=== PATIENT | female | born 1975 | race African-American/Black ===

== ENCOUNTER 2020-12-17 16:47 | Inpatient (IN) | payer MEDICARE, OTHER ==
[~2020-12-17] VITALS: Ht 160 cm; Wt 73.6 kg
[~2020-12-17 16:47] MED LIST: BENA40TA9 PO; METF-415 PO
[2020-12-17] MEDS ORDERED: MORPHINE SULFATE 4 MG/ML CPJ (NOT FOR IM USE) IV STA (17:07)
[2020-12-17] MEDS ORDERED: FUROSEMIDE 40MG/4ML VIAL IV ONE (17:15)
[2020-12-17 17:35] LABS: BASOPHILS % 1.2 % (0.0-2.0); EOSINOPHILS % 2.6 % (0.0-5.0); HEMATOCRIT. 37.9 % (36.0-48.0); HEMOGLOBIN. 11.6 g/dL (12.0-16.0); LYMPHOCYTES % 24.6 % (20.0-50.0); MEAN CORPUSCULAR HEMOGLOBIN 24.2 pg (28.0-32.0); MEAN CORPUSCULAR VOLUME 79.2 fL (81.0-99.0); MEAN PLATELET VOLUME 9.1 fl (7.4-10.4); MONOCYTES % 4.4 % (2.0-8.0); NEUTROPHILS % 67.2 % (40.0-76.0); PLATELET 243 x1000/uL (130-400); RED BLOOD CELL COUNT 4.79 mill/uL (4.2-5.4); RED CELL DISTRIBUTION WIDTH 16.4 % (11.6-14.6)
[2020-12-17 17:40] LABS: CHLORIDE 94 mEq/L (98-107)
[2020-12-17 17:41] LABS: INR 1.1; PROTHROMBIN TIME 11.4 sec (9.6-11.0)
[2020-12-17] MEDS ORDERED: VANCOMYCIN 1 G PREMIX 200 ML IV SCH (17:45)
[2020-12-17] MEDS ORDERED: PIPERACILLIN/TAZOBACTAM 3.375GM/50ML PREMIX IV ONE (17:45)
[2020-12-17 17:47] LABS: BETA HYDROXYBUTYRATE 0.1 mMol/L (0.0-0.3)
[2020-12-17 17:48] LABS: ETHANOL BLOOD < 10 mg/dL
[2020-12-17] MEDS: NITROGLYCERIN 0.4MG TABLET SL SL PRN ×2 (17:57→19:21)
[2020-12-17] MEDS ORDERED: PIPERACILLIN/TAZ 3.375G PREMIX 50 ML IV NR (18:00)
[2020-12-17 19:15] LABS: BG BASE EXCESS 0.7 mmol/L (-2.0-2.0); BG CARBOXYHEMOGLOBIN 0.8 % (0.5-1.5); BG DEOXYHEMOGLOBIN 1.1 % (0.0-5.0); BG FRACTION INSPIRED OXYGEN 65; BG HCO3 ACT 26.2 mmol/L (22.0-26.0); BG METHEMOGLOBIN 0.2 % (0.0-1.5); BG OXYGEN SATURATION 98.9 % (92.0-98.5); BG OXYHEMOGLOBIN 97.9 % (94.0-97.0); BG PCO2 45.9 mmHg (35.0-45.0); BG PH 7.375 (7.350-7.450); BG PO2 146.8 mmHg (75.0-100.0); BG SAMPLE SITE RIGHT RADIAL; BG TOTAL HEMOGLOBIN 11.3 g/dL (12.0-18.0); BG TOTAL RESPIRATORY RATE 22 b/min; BG VENT MODE MASK - BIPAP
[2020-12-17] MEDS ORDERED: DOCUSATE SODIUM 100MG CAPSULE PO PRN (23:00)
[2020-12-17] MEDS ORDERED: ONDANSETRON HCL 4MG/2ML INJ IV PRN (23:00)
[2020-12-17] MEDS ORDERED: MAGNESIUM/ALUMINUM HYDROXIDE/SIMETHICONE 30ML UDC PO PRN (23:00)
[2020-12-17] MEDS ORDERED: ACETAMINOPHEN 325MG TABLET PO PRN (23:00)
[2020-12-17] MEDS ORDERED: IPRATROPIUM/ALBUTEROL 0.5-3(2.5)MG/3ML NEB NEB PRN (23:00)
[2020-12-17] MEDS ORDERED: DEXTROSE 50% WATER 50ML SYRINGE IV PRN ×2 (23:15→23:30)
[2020-12-18] VITALS (52 sets, daily range): BP systolic 93–202; BP diastolic 54–143
[2020-12-18] MEDS: CLONIDINE 0.1MG TABLET PO PRN ×2 (00:24→08:34)
[2020-12-18] MEDS: HYDROCODONE/ACETAMINOPHEN 5/325MG TABLET PO PRN ×2 (00:25→21:08)
[2020-12-18] MEDS: INSULIN LISPRO 100 UNITS/ML SUBCUT SCH ×7 (00:27→17:00)
[2020-12-18 05:37] LABS: CHLORIDE 101 mEq/L (98-107)
[2020-12-18 05:38] LABS: BASOPHILS % 1.3 % (0.0-2.0); EOSINOPHILS % 3.9 % (0.0-5.0); HEMATOCRIT. 32.5 % (36.0-48.0); HEMOGLOBIN. 9.9 g/dL (12.0-16.0); LYMPHOCYTES % 31.8 % (20.0-50.0); MEAN CORPUSCULAR HEMOGLOBIN 23.5 pg (28.0-32.0); MEAN CORPUSCULAR VOLUME 77.1 fL (81.0-99.0); MEAN PLATELET VOLUME 8.8 fl (7.4-10.4); MONOCYTES % 5.7 % (2.0-8.0); NEUTROPHILS % 57.3 % (40.0-76.0); PLATELET 213 x1000/uL (130-400); RED BLOOD CELL COUNT 4.22 mill/uL (4.2-5.4); RED CELL DISTRIBUTION WIDTH 16.5 % (11.6-14.6)
[2020-12-18 05:48] LABS: LDL CHOLESTEROL 80 mg/dL (5-100)
[2020-12-18 05:49] LABS: CREATINE KINASE 69 IU/L (26-192)
[2020-12-18 05:50] LABS: HDL CHOLESTEROL 48 mg/dL (40-59)
[2020-12-18 05:53] LABS: CREATINE KINASE MB FRACTION 3.3 ng/mL (0.5-3.6)
[2020-12-18] MEDS: HEPARIN 5000 UNITS/ML VIAL SUBCUT SCH ×3 (05:56→22:36)
[2020-12-18] MEDS: BLOOD SUGAR DIAGNOSTIC STRIP TEST SCH ×4 (06:08→20:54)
[2020-12-18] MEDS: HYDRALAZINE 20MG/ML VIAL IV PRN ×2 (06:15→19:24)
[2020-12-18] MEDS: MORPHINE SULFATE 2 MG/ML CPJ (NOT FOR IM USE) IV PRN ×2 (07:58→12:22)
[2020-12-18] MEDS ORDERED: LABETALOL 5MG/ML SYR 20 MG/4 ML SYRINGE IV NR (10:00)
[2020-12-18] MEDS ORDERED: LOSARTAN POTASSIUM 100 MG TABLET PO SCH (10:30)
[2020-12-18] MEDS ORDERED: IPRATROPIUM/ALBUTEROL 0.5-3(2.5)MG/3ML NEB HHN PRN (10:30)
[2020-12-18] MEDS ORDERED: NIFEDIPINE XL 60MG TAB PO SCH (10:30)
[2020-12-18 12:08] LABS: HEMATOCRIT 34.9 % (36.0-48.0); HEMOGLOBIN 10.6 g/dL (12.0-16.0)
[2020-12-18] MEDS ORDERED: GABA-529 MT (12:12)
[2020-12-18] MEDS: GABAPENTIN 100MG CAPSULE PO SCH ×2 (13:28→20:55)
[2020-12-18] MEDS: IPRATROPIUM/ALBUTEROL 0.5-3(2.5)MG/3ML NEB HHN SCH ×2 (14:22→19:58)
[2020-12-18 17:03] LABS: CREATINE KINASE MB FRACTION 3.9 ng/mL (0.5-3.6)
[2020-12-18] MEDS ORDERED: LABETALOL HCL 100MG TABLET PO SCH (21:00)
[2020-12-18] MEDS ORDERED: INSULIN LISPRO 100 UNITS/ML SUBCUT SCH (21:00)
[2020-12-18] MEDS ORDERED: INSULIN GLARGINE UD 100 UNITS/ML SYR SUBCUT SCH ×2 (22:00→23:30)
[2020-12-19] VITALS (16 sets, daily range): BP systolic 103–151; BP diastolic 56–91
[2020-12-19] MEDS: IPRATROPIUM/ALBUTEROL 0.5-3(2.5)MG/3ML NEB HHN SCH ×4 (01:50→20:11)
[2020-12-19 04:45] LABS: BASOPHILS % 1.7 % (0.0-2.0); EOSINOPHILS % 6.5 % (0.0-5.0); HEMATOCRIT. 39.2 % (36.0-48.0); HEMOGLOBIN. 11.8 g/dL (12.0-16.0); LYMPHOCYTES % 31.5 % (20.0-50.0); MEAN CORPUSCULAR HEMOGLOBIN 23.6 pg (28.0-32.0); MEAN CORPUSCULAR VOLUME 78.2 fL (81.0-99.0); MEAN PLATELET VOLUME 8.8 fl (7.4-10.4); MONOCYTES % 5.4 % (2.0-8.0); NEUTROPHILS % 54.9 % (40.0-76.0); PLATELET 234 x1000/uL (130-400); RED BLOOD CELL COUNT 5.02 mill/uL (4.2-5.4); RED CELL DISTRIBUTION WIDTH 16.8 % (11.6-14.6)
[2020-12-19] MEDS ORDERED: CLONIDINE 0.1MG TABLET PO PRN (05:15)
[2020-12-19] MEDS ORDERED: DEXTROSE 50% WATER 50ML SYRINGE IV PRN ×2 (05:15)
[2020-12-19] MEDS ORDERED: NITROGLYCERIN 0.4MG TABLET SL SL PRN (05:15)
[2020-12-19] MEDS ORDERED: HYDRALAZINE 20MG/ML VIAL IV PRN (05:15)
[2020-12-19] MEDS ORDERED: ACETAMINOPHEN 325MG TABLET PO PRN (05:15)
[2020-12-19] MEDS ORDERED: DOCUSATE SODIUM 100MG CAPSULE PO PRN (05:15)
[2020-12-19] MEDS ORDERED: MAGNESIUM/ALUMINUM HYDROXIDE/SIMETHICONE 30ML UDC PO PRN (05:15)
[2020-12-19] MEDS ORDERED: IPRATROPIUM/ALBUTEROL 0.5-3(2.5)MG/3ML NEB HHN PRN ×2 (05:15)
[2020-12-19] MEDS ORDERED: ONDANSETRON HCL 4MG/2ML INJ IV PRN (05:15)
[2020-12-19] MEDS: HEPARIN 5000 UNITS/ML VIAL SUBCUT SCH ×3 (05:52→22:48)
[2020-12-19] MEDS: INSULIN LISPRO 100 UNITS/ML SUBCUT SCH ×7 (05:53→22:50)
[2020-12-19] MEDS: GABAPENTIN 100MG CAPSULE PO SCH ×2 (05:53→13:36)
[2020-12-19] MEDS ORDERED: GABAPENTIN 100MG CAPSULE PO SCH (06:00)
[2020-12-19] MEDS: BLOOD SUGAR DIAGNOSTIC STRIP TEST SCH ×4 (06:04→21:33)
[2020-12-19] MEDS ORDERED: BLOOD SUGAR DIAGNOSTIC STRIP TEST SCH (06:50)
[2020-12-19] MEDS ORDERED: METFORMIN HCL 850MG TABLET PO SCH ×2 (07:00→07:20)
[2020-12-19] MEDS: LABETALOL HCL 100MG TABLET PO SCH ×2 (08:18→22:46)
[2020-12-19] MEDS: HYDROCODONE/ACETAMINOPHEN 5/325MG TABLET PO PRN ×2 (08:20→13:38)
[2020-12-19] MEDS: NIFEDIPINE XL 60MG TAB PO SCH (08:21)
[2020-12-19] MEDS: LOSARTAN POTASSIUM 100 MG TABLET PO SCH (09:00)
[2020-12-19] MEDS: MORPHINE SULFATE 2 MG/ML CPJ (NOT FOR IM USE) IV PRN ×3 (10:30→23:15)
[2020-12-19] MEDS ORDERED: GABAPENTIN 300MG CAPSULE PO SCH ×2 (14:00→20:00)
[2020-12-19] MEDS ORDERED: INSULIN GLARGINE UD 100 UNITS/ML SYR SUBCUT SCH (22:00)
[2020-12-20] VITALS: BP 147/69
[2020-12-20] MEDS: IPRATROPIUM/ALBUTEROL 0.5-3(2.5)MG/3ML NEB HHN SCH ×3 (01:43→12:27)
[2020-12-20 04:00] VITALS: BP 160/89
[2020-12-20] MEDS: HEPARIN 5000 UNITS/ML VIAL SUBCUT SCH ×2 (06:26→14:00)
[2020-12-20] MEDS: BLOOD SUGAR DIAGNOSTIC STRIP TEST SCH ×3 (06:48→17:43)
[2020-12-20] MEDS: INSULIN LISPRO 100 UNITS/ML SUBCUT SCH ×6 (06:51→17:45)
[2020-12-20 07:20] LABS: BASOPHILS % 1.1 % (0.0-2.0); EOSINOPHILS % 5.9 % (0.0-5.0); HEMATOCRIT. 32.3 % (36.0-48.0); LYMPHOCYTES % 38.5 % (20.0-50.0); MEAN CORPUSCULAR HEMOGLOBIN 24.1 pg (28.0-32.0); MEAN CORPUSCULAR VOLUME 78.1 fL (81.0-99.0); MEAN PLATELET VOLUME 8.7 fl (7.4-10.4); MONOCYTES % 8.1 % (2.0-8.0); NEUTROPHILS % 46.4 % (40.0-76.0); PLATELET 227 x1000/uL (130-400); RED BLOOD CELL COUNT 4.14 mill/uL (4.2-5.4); RED CELL DISTRIBUTION WIDTH 16.6 % (11.6-14.6)
[2020-12-20 08:00] VITALS: BP 135/72
[2020-12-20] MEDS: LABETALOL HCL 100MG TABLET PO SCH (08:09)
[2020-12-20] MEDS: NIFEDIPINE XL 60MG TAB PO SCH (08:10)
[2020-12-20] MEDS: LOSARTAN POTASSIUM 100 MG TABLET PO SCH (08:10)
[2020-12-20] MEDS: MORPHINE SULFATE 2 MG/ML CPJ (NOT FOR IM USE) IV PRN ×2 (08:13→17:33)
[2020-12-20] MEDS ORDERED: DIPHENHYDRAMINE 50MG/ML VIAL IV PRN (09:30)
[2020-12-20] MEDS ORDERED: LANTUSUD SUBCUT (11:36)
[2020-12-20] MEDS ORDERED: LOSA100T3 PO (11:36)
[2020-12-20] MEDS ORDERED: NIFE-32 PO (11:36)
[2020-12-20] MEDS ORDERED: GABA-532 PO (11:36)
[2020-12-20] MEDS ORDERED: LABE100T5 PO (11:36)
[2020-12-20] MEDS ORDERED: INSLIS SUBCUT (11:36)
[2020-12-20 12:00] VITALS: BP 121/51
[2020-12-20 14:47] VITALS: BP 121/51
== END 2020-12-20 18:50 | disposition home or self-care (01) | DRG 291 ==
LOC: ER 16:47 → MICUSO 17:34 → EDBEDREQTM 17:40 → EDBEDREQ 17:40 → EDBEDREQTM 20:40 → EDBEDREQSVC 20:40 → ENRESERV 21:04 → 3WST 12-19 04:51 → 8WST 12-19 20:40
PROVIDERS: ADMIT Internal Medicine; ATTEND Internal Medicine
PROC: 5A09357 Assistance with Respiratory Ventilation, Less than 24 Consecutive Hours, Continuous Positive Airway Pressure (ICD-10-PCS; principal; 2020-12-17)
PROC: 5A1D70Z Performance of Urinary Filtration, Intermittent, Less than 6 Hours Per Day (ICD-10-PCS; 2020-12-17)
PROC: 5A1D70Z Performance of Urinary Filtration, Intermittent, Less than 6 Hours Per Day (ICD-10-PCS; 2020-12-18)
PROC: 5A1D70Z Performance of Urinary Filtration, Intermittent, Less than 6 Hours Per Day (ICD-10-PCS; 2020-12-20)
DX: I13.2 Hypertensive heart and chronic kidney disease with heart failure and with stage 5 chronic kidney disease, or end stage renal disease (principal); J96.01 Acute respiratory failure with hypoxia; I50.33 Acute on chronic diastolic (congestive) heart failure; N18.6 End stage renal disease; E87.2 Acidosis; I16.0 Hypertensive urgency; E87.70 Fluid overload, unspecified; E78.5 Hyperlipidemia, unspecified; D64.9 Anemia, unspecified; E11.22 Type 2 diabetes mellitus with diabetic chronic kidney disease; E11.65 Type 2 diabetes mellitus with hyperglycemia; E87.5 Hyperkalemia; Z20.822 Contact with and (suspected) exposure to COVID-19; I27.20 Pulmonary hypertension, unspecified; E11.42 Type 2 diabetes mellitus with diabetic polyneuropathy; I08.1 Rheumatic disorders of both mitral and tricuspid valves; Z99.2 Dependence on renal dialysis; Z86.73 Personal history of transient ischemic attack (TIA), and cerebral infarction without residual deficits; Z91.15 Patient's noncompliance with renal dialysis; Z79.899 Other long term (current) drug therapy; Z79.84 Long term (current) use of oral hypoglycemic drugs
CPT/HCPCS: 36415; 36600; 71045; 80048; 80053; 80061; 80320; 82010; 82375; 82550; 82553; 82805; 82962; 83036; 83605; 83735; 83880; 84443; 84484; 85014; 85018; 85025; 86850; 86900; 93005; 93306; 93970; 94640; 94660; 99291; J0360; J1200; J1644; J1815; J1940; J2270; J2543; J3370; J3490; U0003; G0480

== ENCOUNTER 2021-05-06 18:20 | Emergency (ER) | payer MEDICARE, OTHER ==
[~2021-05-06] VITALS: Ht 152.4 cm; Wt 68.0 kg
[~2021-05-06 18:20] MED LIST changes: -BENA40TA9 PO; +GABA-532 PO; +INSLIS SUBCUT; +LABE100T5 PO; +LANTUSUD SUBCUT; +LOSA100T3 PO; +NIFE-32 PO
[2021-05-06] MEDS ORDERED: ACETAMINOPHEN 325MG TABLET PO ONE (21:00)
[2021-05-06] MEDS ORDERED: LOSARTAN POTASSIUM 100 MG TABLET PO ONE (21:45)
[2021-05-06] MEDS ORDERED: NIFEDIPINE XL 60MG TAB PO ONE (21:45)
[2021-05-06] MEDS ORDERED: LABETALOL HCL 100MG TABLET PO ONE (21:45)
[2021-05-06] MEDS ORDERED: ACET-2708 MT (23:04)
[2021-05-06 23:55] VITALS: BP 166/71
== END 2021-05-06 23:55 | disposition home or self-care (01) ==
LOC: ER 18:47
DX: B34.9 Viral infection, unspecified (principal); I10 Essential (primary) hypertension; E11.9 Type 2 diabetes mellitus without complications; I12.0 Hypertensive chronic kidney disease with stage 5 chronic kidney disease or end stage renal disease; E11.22 Type 2 diabetes mellitus with diabetic chronic kidney disease; N18.6 End stage renal disease; Z99.2 Dependence on renal dialysis; Z98.890 Other specified postprocedural states; Z86.73 Personal history of transient ischemic attack (TIA), and cerebral infarction without residual deficits; Z79.899 Other long term (current) drug therapy; Z20.822 Contact with and (suspected) exposure to COVID-19
CPT/HCPCS: 87426; 99284